=== PATIENT | male | born 1980 | race African-American/Black ===

== ENCOUNTER → 2020-02-13 12:04 | Outpatient (CLI) | payer OTHER, SELFPAY ==
--- NOTE | 2020-02-13 12:06 | DI.MRI.S_ITS ---
PROCEDURE: MRFOOT LT WO CON INDICATIONS: Left foot pain status post trauma. TECHNIQUE: Noncontrast sagittal T1 spin echo and T2 fast spin echo with fat saturation, long-axis T1 spin echo and T2 fast spin echo with fat saturation, short-axis T1 spin echo and T2 fast spin echo with fat saturation through the forefoot. COMPARISON: [facility], MR, MR ANKLE LT WO CON, 02/13/2020, 12:50. FINDINGS: Image quality: Excellent. Bones and joints: No bone marrow contusions or fractures. No evidence of metatarsal stress reaction or stress fractures. The sesamoid bones appear in expected positions, without internal edema. No metatarsophalangeal joint degeneration. No intraosseous lesions. Soft tissues: The visualized plantar foot muscles demonstrate normal signal and bulk. Visualized flexor and extensor tendons appear intact, without tenosynovitis. The distal insertions of the peroneus brevis and longus tendons appear intact. The principal Lisfranc ligament appears intact. No soft tissue ganglion cysts. There is trace intermetatarsal bursal fluid within the 2nd and 3rd metatarsal interspaces. Sagittal images demonstrate no evidence for plantar plate tears. IMPRESSION: 1. No fractures or bone contusions. Dictated by: Trace Cornelius M.D. on 02/13/2020 at 14:42 Approved by: Trace Cornelius M.D. on 02/13/2020 at 14:48
--- NOTE | 2020-02-13 12:06 | DI.MRI.S_ITS ---
PROCEDURE: MR ANKLE LT WO CON INDICATIONS: LEFT FOOT PAIN TECHNIQUE: Noncontrast sagittal T1 spin echo and T2 fast spin echo with fat saturation, axial proton density fast spin echo and T2 fast spin echo with fat saturation, coronal T1 spin echo and T2 fast spin echo with fat saturation through the ankle/hindfoot. COMPARISON: [facility], MR, MR FOOT LT WO CON, 02/13/2020, 12:25. FINDINGS: Image quality: Excellent. Bones and joints: There is cortical irregularity within the medial talus at the deltoid ligament insertion with associated small avulsion fragments compatible with sequelae of an avulsion injury. Elsewhere, no bone contusions or fractures. No hindfoot coalitions. No osteochondral injuries of the talar dome. No pathologic joint effusions. Medial structures: The posterior tibialis, flexor digitorum longus, and flexor hallucis longus tendons are intact. The posterior tibial neurovascular bundle appears normal within the tarsal tunnel, without extrinsic mass effect. The deltoid ligament is attenuated in appearance consistent with sequelae of a moderate sprain with associated small avulsion fragments along its patellar insertion. The spring ligament components appear intact. Lateral structures: The anterior talofibular, calcaneofibular, and posterior talofibular ligaments appear intact. More superiorly, the anterior and posterior tibiofibular ligaments appear intact, as is the intermalleolar ligament. The tibiofibular syndesmosis is normal in width at 2 mm or less. The peroneus longus and brevis tendons demonstrate normal location and morphology. Adjacent bony peroneal tubercle and retrotrochlear prominence are normal in size. The sinus tarsi demonstrates normal fatty signal, without edema, fibrosis, or cyst formation. The calcaneonavicular and calcaneocuboid components of the bifurcate ligament appear intact. The dorsal calcaneocuboid ligament appears intact. Anterior structures: The tibialis anterior, extensor hallucis longus, and extensor digitorum longus tendons appear intact. The dorsal talonavicular ligament appears intact. Posterior and plantar structures: Achilles tendon is intact. Medial and lateral bands of the plantar fascia are of normal thickness. No abductor digiti quinti muscle atrophy to suggest Vargas neuropathy. IMPRESSION: 1. Sequelae of a moderate sprain of the deltoid ligament with small avulsion fragments along its talar insertion. Findings are of indeterminate acuity and correlation is recommended with clinical history. Dictated by: Trace Cornelius M.D. on 02/13/2020 at 14:48 Approved by: Trace Cornelius M.D. on 02/13/2020 at 14:54
== END ==
PROVIDERS: Referring Provider Podiatrist; Visit Provider Podiatrist
DX: S99.922A Unspecified injury of left foot, initial encounter (principal); S93.422A Sprain of deltoid ligament of left ankle, initial encounter; M79.672 Pain in left foot; M25.475 Effusion, left foot; R26.2 Difficulty in walking, not elsewhere classified
CPT/HCPCS: 73718; 73721